=== PATIENT | male | born 1965 | race Caucasian/White ===

== ENCOUNTER 2018-07-13 08:13 | Day surgery (SDC) | payer MEDICAID ==
[2018-07-13] MEDS ORDERED: Lactated Ringer's 500 ML IV ONE (08:54)
[2018-07-13] MEDS ORDERED: Midazolam 2 MG/2 ML VIAL ONE (09:48)
[2018-07-13] MEDS ORDERED: Propofol 10 mg/ml Inj (20 ML) ONE (09:48)
[2018-07-13 10:51] VITALS: TEMP 97
[2018-07-13 11:05] VITALS: BP 110/70; PULSE 60; RESP 17; O2SAT 100
== END 2018-07-13 11:12 | disposition home or self-care (01) ==
LOC: H.ENDO 08:13
PROVIDERS: ATTEND Internal Medicine Gastroenterology
DX: K92.2 Gastrointestinal hemorrhage, unspecified (principal); E78.5 Hyperlipidemia, unspecified; K64.8 Other hemorrhoids; K29.50 Unspecified chronic gastritis without bleeding; K31.89 Other diseases of stomach and duodenum; R10.13 Epigastric pain
CPT/HCPCS: 43239; 45378; 88305; J2001; J2250; J2704; J7120